=== PATIENT | male | born 1955 | race Caucasian/White ===

== ENCOUNTER 2016-11-24 13:09 | Inpatient (IN) | payer OTHER ==
[~2016-11-24] VITALS: Ht 165.1 cm; Wt 71.2 kg
[2016-11-24] MEDS: PROPRANOLOL 10 MG TAB PO SCH
[2016-11-24] MEDS: RIFAXIMIN 550 MG TAB PO SCH (00:12)
[~2016-11-24 13:09] MED LIST: DOXY-220 PO; FURO40TA4 PO; LACT20SO12 PO; LANT3I SC; LEVO500T72 PO; METF-480 PO; PANT40TA4 PO; PROP10TA6 PO; RIFA550T4 PO; SPIR50TA PO; SUCR1TAB56 PO
[2016-11-24] MEDS ORDERED: SOD CHLORIDE 0.9% 500 ML IV STA (13:48)
[2016-11-24] MEDS ORDERED: FURO40TA4 PO (14:10)
[2016-11-24] MEDS ORDERED: LANT3I SC (14:11)
[2016-11-24] MEDS ORDERED: SPIR100T PO (14:11)
[2016-11-24 14:18] LABS: ADD SCAN DIFF NO
[2016-11-24 14:21] LABS: BASOPHILS % 0.5 % (0.0-2.0); EOSINOPHILS # 0.2 10^3/ul (0.0-0.5); EOSINOPHILS % 2.1 % (0.0-7.0); HEMOGLOBIN 10.4 g/dl (14.0-18.0); LYMPHOCYTES # 1.6 10^3/ul (0.8-2.9); LYMPHOCYTES % 20.6 % (15.0-51.0); MEAN CORPUSCULAR HEMOGLOBIN 32.1 pg (29.0-33.0); MEAN CORPUSCULAR HGB CONC 34.7 g/dl (32.0-37.0); MEAN CORPUSCULAR VOLUME 92.6 fl (82.0-101.0); MONOCYTE # 0.8 10^3/ul (0.3-0.9); MONOCYTES % 9.9 % (0.0-11.0); NEUTROPHILS % 66.5 % (39.0-77.0); PLATELET COUNT 156 10^3/UL (140-415); RED BLOOD COUNT 3.24 10^6/ul (4.70-6.10); RED CELL DISTRIBUTION WIDTH 15.4 % (11.5-14.5); WHITE BLOOD COUNT 7.6 10^3/ul (4.8-10.8)
[2016-11-24 14:32] LABS: CHLORIDE 107 mmol/L (97-110); POTASSIUM 4.1 mmol/L (3.5-5.1); SODIUM 140 mmol/L (135-144)
[2016-11-24 14:33] LABS: INR 1.22; PARTIAL THROMBOPLASTIN TIME 29.6 Sec (25.0-35.0); PROTIME 15.5 Sec (12.2-14.2); PT RATIO 1.2
[2016-11-24 14:34] LABS: ALBUMIN/GLOBULIN RATIO 0.61; ALKALINE PHOSPHATASE 222 IU/L (42-121); ANION GAP 15 (8-16); ASPARTATE AMINO TRANSFERASE 37 IU/L (15-46); BILIRUBIN,INDIRECT 1.7 mg/dl (0-1.1); BILIRUBIN,TOTAL 1.7 mg/dl (0.2-1.3); CARBON DIOXIDE 22 mmol/L (21-31); CREATININE 1.06 mg/dl (0.61-1.24); TOTAL PROTEIN 7.9 g/dl (6.1-8.1)
[2016-11-24 14:35] LABS: ALANINE AMINOTRANSFERASE 19 IU/L (13-69); BLOOD UREA NITROGEN 21 mg/dl (7-20); GLUCOSE 255 mg/dl (70-220)
[2016-11-24 14:36] LABS: ETHANOL < 10.0 mg/dl
[2016-11-24 14:47] LABS: TROPONIN-I < 0.012 ng/ml (0.00-0.12)
--- NOTE | 2016-11-24 15:16 | RADRPT ---
PROCEDURE: XR Chest 1 View. CLINICAL INDICATION: Abnormal breath sounds, abdominal pain TECHNIQUE: AP view of the chest was obtained. COMPARISON: August 01, 2016 FINDINGS: The heart size is within normal limits. Calcified atherosclerosis is noted in the aorta. The lungs are hypoinflated. Elevation of the right hemidiaphragm is identified. Atelectasis is seen at the jeana ng bases. No consolidations are identified. No pneumothorax is seen. Osseous structures are intact . IMPRESSION: Calcified atherosclerosis in the aorta. Hypoinflated lungs with elevation of the right hemidiaphragm. Atelectasis at the lung bases. RPTAT: AA .Fabio Pelletier MD, Date Time Electronically viewed and signed by .Fabio Pelletier MD, MD on 11/24/2016 15:16 .P/
[2016-11-24] MEDS ORDERED: LACTULOSE 30ML CUP PO ONE (16:00)
[2016-11-24 16:05] LABS: ADD UMIC YES; URINE BILIRUBIN (Dip) NEGATIVE (NEGATIVE); URINE BLOOD (Dip) 1+ (NEGATIVE); URINE COLOR LT. YELLOW (YELLOW); URINE GLUCOSE (Dip) NEGATIVE (NEGATIVE); URINE KETONES (Dip) NEGATIVE (NEGATIVE); URINE LEUKOCYTE ESTERASE (Dip) NEGATIVE (NEGATIVE); URINE NITRITE (Dip) NEGATIVE (NEGATIVE); URINE TOTAL PROTEIN (Dip) NEGATIVE (NEGATIVE); URINE UROBILINOGEN (Dip) 0.2 E.U./dL (0.1-1.0)
--- NOTE | 2016-11-24 16:55 | ERA ---
ER Documentation Chief Complaint Date/Time DATE: 11/24/16 TIME: 16:52 Chief Complaint confusion since this morning. no trauma. no headache. transplant list HPI 61-year-old man brought in by son for recent confusion, he has a history of liver failure secondary to chronic alcoholism and his PMD suspected hepatic encephalopathy and prescribed lactulose although son states he has not yet used it. He has had no fevers or chills, no vomiting or diarrhea, no blood per rectum or melena. Patient denies chest pain or shortness of breath. ROS All systems reviewed and are negative except as per history of present illness. Medications Home Meds Active Scripts Propranolol Hcl* (Propranolol Hcl*) 10 Mg Tablet, 10 MG PO BID, #60 TAB Prov:AISHA SANDOVAL MD 08/03/16 Pantoprazole* (Pantoprazole*) 40 Mg Tablet.dr, 40 MG PO AC BREAKFAST, #30 TAB Prov:AISHA SANDOVAL MD 08/03/16 Reported Medications Insulin Glargine* (Lantus*) 100 Unit/Ml Soln, 30 UNIT SC DAILY, #1 VIAL 11/24/16 Spironolactone* (Aldactone*) 100 Mg Tablet, 100 MG PO BID, #60 TAB 11/24/16 Furosemide* (Furosemide*) 40 Mg Tablet, 40 MG PO DAILY, TAB 11/24/16 Sucralfate* (Carafate*) 1 Gm Tab, 1 GM PO Q6, TAB 07/08/16 Discontinued Scripts Doxycycline Monohydrate* (Doxycycline Monohydrate*) 100 Mg Tablet, 100 MG PO BID , #40 TAB Prov:AISHA SANDOVAL MD 08/03/16 Lactulose* (Cephulac*) 20 Gm/30 Ml Soln, 20 GM PO TID for 30 Days Prov:AISHA SANDOVAL MD 08/03/16 Spironolactone* (Aldactone*) 50 Mg Tablet, 25 MG PO BID, #60 TAB Prov:AISHA SANDOVAL MD 08/03/16 Levofloxacin* (Levaquin*) 500 Mg Tablet, 500 MG PO ONCE for prostatitis for 14 Days, #14 TAB Prov:AISHA SANDOVAL MD 08/03/16 Furosemide* (Furosemide*) 40 Mg Tablet, 20 MG PO DAILY for 30 Days, #30 TAB 1 Refill Prov:AISHA SANDOVAL MD 08/03/16 Metformin* (Glucophage*) 850 Mg Tablet, 500 MG PO WITH BREAKFAST DINNE, #60 TAB Prov:AISHA SANDOVAL MD 08/03/16 Insulin Glargine* (Lantus*) 100 Unit/Ml Soln, 25 UNIT SC QPM, #1 VIAL Prov:AISHA SANDOVAL MD 08/03/16 Rifaximin* (Xifaxan*) 550 Mg Tablet, 550 MG PO BID for 30 Days, TAB Prov:ZEHRA CANALES MD 07/11/16 Allergies Allergies: Coded Allergies: No Known Allergy (Unverified , 07/02/16) PMhx/Soc Recent septic shock, previous alcoholism, alcoholic cirrhosis, diabetes mellitus , hypertension, upper gastrointestinal varices, thrombocytopenia History of Surgery: Yes Anesthesia Reaction: No Hx Neurological Disorder: No Hx Respiratory Disorders: Yes (Pneumonia) Hx Cardiac Disorders: Yes (Pul HTN) Hx Psychiatric Problems: No Hx Miscellaneous Medical Probl: Yes (Sepsis. C.diff. UTI. PNA. cirrhosis) Hx Alcohol Use: Yes (Long time ago) Hx Substance Use: No Hx Tobacco Use: No Smoking Status: Never smoker FmHx Family History: No diabetes Physical Exam Vitals Vital Signs Date Time Temp Pulse Resp B/P Pulse Ox O2 Delivery O2 Flow Rate FiO2 11/24/16 16:42 78 20 128/76 99 Room Air 11/24/16 14:04 Nasal Cannula 2 11/24/16 13:28 98.8 97 21 116/78 99 Physical Exam GENERAL: Well-developed, dehydrated, emaciated man HEENT: Pale conjunctivae, dry mucous membranes, no cervical spine tenderness or step-off deformities, no goiter, no jaundice or icterus, extraocular movements intact without pain. No submandibular induration, and no pharyngeal erythema NEURO: Patient is alert and oriented 1, he is able to answer questions and follow simple commands, cranial nerves II through XII intact bilaterally, pupils equal round reactive to light, no focal deficits or facial asymmetry, sensation intact distally Strength 5/5 in upper and lower extremities bilaterally CARDIAC: Regular rate and rhythm, no murmurs rubs or gallops LUNGS: Clear bilaterally no wheezing crackles or stridor ABDOMEN: Soft, protuberant abdomen, no guarding, no rigidity, no rebound, no psoas sign no obturator sign. Normoactive bowel sounds SKIN: Warm and dry to touch, no abrasions, contusions, or hematomas, no lacerations, no ecchymosis, no target lesions, and without ulcers EXTREMITIES: No clubbing cyanosis or edema, calves are bilaterally symmetrical, no Homans sign, no popliteal cord sign. Distal pulses equal and bilateral PSYCH: Normal affect without agitation or irritability Result Diagram: 11/24/16 1400 11/24/16 1400 Results 24 hrs Laboratory Tests Test 11/24/16 14:00 11/24/16 15:40 White Blood Count 7.610^3/ul Red Blood Count 3.2410^6/ul Hemoglobin 10.4g/dl Hematocrit 30.0% Mean Corpuscular Volume 92.6fl Mean Corpuscular Hemoglobin 32.1pg Mean Corpuscular Hemoglobin Concent 34.7g/dl Red Cell Distribution Width 15.4% Platelet Count 83218^3/UL Mean Platelet Volume 10.0fl Neutrophils % 66.5% Lymphocytes % 20.6% Monocytes % 9.9% Eosinophils % 2.1% Basophils % 0.5% Nucleated Red Blood Cells % 0.0/100WBC Neutrophils # 5.010^3/ul Lymphocytes # 1.610^3/ul Monocytes # 0.810^3/ul Eosinophils # 0.210^3/ul Basophils # 0.010^3/ul Nucleated Red Blood Cells # 0.010^3/ul Prothrombin Time 15.5Sec Prothrombin Time Ratio 1.2 INR International Normalized Ratio 1.22 Activated Partial Thromboplast Time 29.6Sec Sodium Level 140mmol/L Potassium Level 4.1mmol/L Chloride Level 107mmol/L Carbon Dioxide Level 22mmol/L Anion Gap 15 Blood Urea Nitrogen 21mg/dl Creatinine 1.06mg/dl Glucose Level 255mg/dl Calcium Level 9.0mg/dl Total Bilirubin 1.7mg/dl Direct Bilirubin 0.00mg/dl Indirect Bilirubin 1.7mg/dl Aspartate Amino Transf (AST/SGOT) 37IU/L Alanine Aminotransferase (ALT/SGPT) 19IU/L Alkaline Phosphatase 222IU/L Ammonia 95umol/l Troponin I < 0.012ng/ml Total Protein 7.9g/dl Albumin 3.0g/dl Globulin 4.90g/dl Albumin/Globulin Ratio 0.61 Lipase 297U/L Ethyl Alcohol Level < 10.0mg/dl Urine Color LT. YELLOW Urine Clarity CLEAR Urine pH 7.0 Urine Specific [place] <=1.005 Urine Ketones NEGATIVE Urine Nitrite NEGATIVE Urine Bilirubin NEGATIVE Urine Urobilinogen 0.2 E.U./dL Urine Leukocyte Esterase NEGATIVE Urine Microscopic RBC 2-5/HPF Urine Microscopic WBC NONE SEEN/HPF Urine Hemoglobin 1+ Urine Glucose NEGATIVE% Urine Total Protein NEGATIVE Current Medications Medications (Trade) Dose Ordered Sig/José Miguel Route PRN Reason Start Time Stop Time Status Last Admin Dose Admin Sodium Chloride (NS) 500 ml @ 500 mls/hr Q1H STAT IV 11/24/16 13:48 11/24/16 14:47 DC 11/24/16 14:40 Lactulose (Enulose) 40 gm ONCE ONCE PO 11/24/16 16:00 11/24/16 16:01 DC 11/24/16 15:48 Lorazepam (Ativan) 0.5 mg ONCE ONCE IV 11/24/16 17:30 11/24/16 18:35 DC 11/24/16 17:20 Lorazepam (Ativan) 1 mg ONCE ONCE IV 11/24/16 18:00 11/24/16 18:35 DC 11/24/16 17:50 Rifaximin (Xifaxan) 550 mg BID PO 11/24/16 18:56 Pantoprazole (Protonix Tab) 40 mg AC BREAKFAST PO 11/25/16 07:00 Lactulose (Enulose) 20 gm TID PO 11/24/16 21:00 Insulin Aspart (Novolog Insulin Pen) NOVOLOG *MILD* ALGORITHM WITH MEALS BEDTIME SC 11/24/16 21:00 Insulin Glargine (Lantus) 10 unit DAILY@20 MS 11/24/16 20:00 Miscellaneous Information (* Miscellaneous Pharmacy Order) HYPOGLYCEMIA PROTOCOL w... ONCE ONCE XX 11/24/16 19:00 11/24/16 19:01 DC Miscellaneous Information (* Miscellaneous Pharmacy Order) Discontinue Glyburide, Glipizide,... ONCE ONCE XX 11/24/16 19:00 11/24/16 19:01 DC Miscellaneous Information (* Miscellaneous Pharmacy Order) Discontinue all previ... ONCE ONCE XX 11/24/16 19:00 11/24/16 19:01 DC Pantoprazole (Protonix Iv) 40 mg DAILY IV 11/25/16 09:00 UNV Propranolol HCl (Inderal) 10 mg BID PO 11/24/16 21:00 Miscellaneous Information 1 ea NOTE XX 11/24/16 19:00 Glucose (Glutose) 15 gm Q15M PRN PO DECREASED GLUCOSE 11/24/16 19:00 Glucose (Glutose) 22.5 gm Q15M PRN PO DECREASED GLUCOSE 11/24/16 19:00 Dextrose (D50w Syringe) 25 ml Q15M PRN IV DECREASED GLUCOSE 11/24/16 19:00 Dextrose (D50w Syringe) 50 ml Q15M PRN IV DECREASED GLUCOSE 11/24/16 19:00 Glucagon (Glucagen) 1 mg Q15M PRN IM DECREASED GLUCOSE 11/24/16 19:00 Glucose (Glutose) 15 gm Q15M PRN BUCCAL DECREASED GLUCOSE 11/24/16 19:00 Procedures/MDM IV line was established patient was placed on manager cardiac cath rhythm strip revealed a sinus tachycardia at 100 bpm with upright P and T waves. I administered 500 cc of normal saline intravenously. CBC was unremarkable, electrolytes revealed dehydration with a BUN/creatinine of 21/1.1, liver function tests were unremarkable, ammonia level elevated at 95. Coagulation profile revealed an INR of 1.2, urine analysis was negative for infection. Alcohol level was negative. EKG performed, read by me: 91 bpm, normal sinus rhythm, normal axis, no acute ST segment changes, narrow QRS complex, with good R-wave progression in precordial leads. For acute hyperammonemia administered lactulose 40 g p.o. which he tolerated. Unfortunately patient continually got out of bed and given his confusion was at risk for falling and sustaining either head and/or neck injury. Despite explaining to him multiple times patient obviously remains confused and would not comply with orders to lay in bed. Physical restraints were administered in the upper and lower extremities bilaterally although patient became further agitated and ultimately required lorazepam 1.5 mg IV, the risks of lorazepam therapy were weighted against the benefits carefully, and I decided to administer the lorazepam. Critical Care: Time: 35 minutes, this was time separate from other procedures. Treatments/Evaluations: Close monitoring and treatment of unstable vital signs, cardiorespiratory, and neurologic status, while maintaining tight balance of fluid, respiratory, and cardiac interventions. Patient will be admitted for continued medical management and lactulose therapy. Departure Diagnosis: Primary Impression: Altered level of consciousness Additional Impressions: Hyperammonemia Hepatic cirrhosis Qualified Code: K70.31 - Alcoholic cirrhosis of liver with ascites Dehydration Condition: DAVID Mccarthy MD Nov 24, 2016 16:55
[2016-11-24] MEDS ORDERED: LORAZEPAM 2 MG INJ IV ONE ×2 (17:30→18:00)
[2016-11-24] MEDS ORDERED: GLUCOSE GEL 15 GRAM TUBE PO PRN ×2 (19:00)
[2016-11-24] MEDS ORDERED: DEXTROSE 50% 50 ML SYRINGE IV PRN ×2 (19:00)
[2016-11-24] MEDS ORDERED: GLUCOSE GEL 15 GRAM TUBE BUCCAL PRN (19:00)
[2016-11-24] MEDS ORDERED: GLUCAGON 1 MG INJ IM PRN (19:00)
[2016-11-24] MEDS: INSULIN GLARGINE [LANtus] 3 ML PEN SC SCH (20:00)
--- NOTE | 2016-11-24 20:09 | RADRPT ---
PROCEDURE: US liver, right upper quadrant CLINICAL INDICATION: Possible ascites. Abdominal distension. Questionable hepatoma TECHNIQUE: Multiple real-time images were acquired of the patient's right upper abdomen utilizing a high resolution transducer. COMPARISON: CT abdomen and pelvis 07/09/2016. Ultrasound 07/02/2016 Technical note: The examination is suboptimal because of the patient's large body habitus. FINDINGS: Liver: Nodular in contour with heterogeneous echotexture, findings consistent with cirrhosis. Ther e is no evidence of mass or ductal dilatation. Normal directional blood flow is seen within the john nt main portal vein. The maximum dimension of the liver is estimated at 12.4 cm, decreased from 14.5 cm on the prior ultrasound of 07/02/2016. . Gallbladder: Normal. No sonographic Wall's sign is reported.Thickening of the wall (6mm) is like ly due to hepatocellular dysfunction or ascites. Common bile duct: Normal; 4.6 mm. There is no evidence for choledocholithiasis. Right Kidney: Normal; maximum length measured at approximately 8.7cm. Questionable 4 mm non obstruc ting calculus not seen previously. Pancreas: Obscured by bowel gas. Other findings: Moderate to severe ascites similar to the CT of 07/09/2016 RPTAT:HJJR IMPRESSION: 1. Limited exam due to body habitus. 2. Moderate to severe ascites similar to the CT of 07/09/2016. 3. Cirrhosis with slight interval decrease in hepatic size compared to the ultrasound of 07/02/2016. 4. Questionable 4 mm non-obstructing right renal calculus not seen previously. 5. Gallbladder wall thickening likely related to hepatocellular dysfunction or ascites. Physician Cale Date Time Electronically viewed and signed by Physician Cale on 11/24/2016 20:08 JR/
[2016-11-24] MEDS: INSULIN ASPART [NOVOLOG] 3 ML PEN SC SCH (21:00)
--- NOTE | 2016-11-24 21:36 | CONS ---
DATE OF ADMISSION: 11/24/2016 DATE OF CONSULTATION: 11/24/2016 TYPE OF CONSULTATION: Gastroenterology. Thank you for having me see this patient. HISTORY OF PRESENT ILLNESS: As you know, he is a 61-year-old gentleman with a long and complicated medical history. The history is obtained from review of the records and discussion with the patient 's niece since the patient is unable to give any coherent history. Apparently he was brought to the emergency room today because of a deterioration in mental function. The patient has a longstanding history of alcoholic cirrhosis. Nonetheless, he has not been drinking for some time. He had been treated with Xifaxan and lactulose for his encephalopathy. Apparently, recently he was given Ambien according to the niece. It is unclear as to how many of these he may have taken. Nonetheless, he is also undergoing a liver transplant evaluation at [facility]. There has been no rectal bleeding, melena , diarrhea or constipation noted by the niece. The patient has had extensive evaluation in the past including a colonoscopy by Dr. Ackerman in June which was negative. An endoscopy at that time revealed esophageal and gastric varices. PAST MEDICAL HISTORY: Significant for hospitalization related to liver problems as above. ADULT ILLNESSES: Significant for cirrhosis, hypertension, diabetes as well as pulmonary hypertensio n, ascites. CHILDHOOD: Denies rheumatic fever, scarlet fever. ALLERGIES: NONE KNOWN. INJURIES: None. MEDICATIONS: Apparently prior to admission have included: 1. Propranolol. 2. Pantoprazole. 3. Insulin. 4. Spironolactone. 5. Lasix. 6. Sucralfate. Apparently discontinued medications include: 1. Doxycycline. 2. Lactulose. 3. Spironolactone. 4. Levofloxacin. 5. Furosemide. 6. Metformin. 7. Insulin. 8. Rifaximin. SOCIAL HISTORY: The patient does not smoke or drink alcohol currently. FAMILY HISTORY: Noncontributory. REVIEW OF SYSTEMS: Negative except as noted above. PHYSICAL EXAMINATION: GENERAL: The patient is a well-developed, well-nourished male. No acute distress. VITAL SIGNS: Temperature is 98.8, pulse 78, respirations 20, blood pressure 128/76. SKIN: Clear. HEENT: Negative. LUNGS: Clear to percussion, auscultation. CARDIAC: No murmurs or gallops. ABDOMEN: Soft, nontender. Ascites noted. No rebound, rigidity. RECTAL: Brown stool. LABORATORY DATA: Remarkable for white count 7.6, hemoglobin 10, hematocrit 30, platelets 156. Prot tarik/INR 1.2, PTT 29. BUN 21, creatinine 1.06, bilirubin 1.7, AST 37, ALT 19, alkaline phosphatase 2 22, ammonia 95, albumin 3.0. IMPRESSION: The patient does carry a diagnosis of hepatic encephalopathy. According to the emergen cy room physician's note, apparently the Xifaxan and lactulose have been discontinued. In addition, the patient has received Ambien. It is likely the combination of his lack of Xifaxan and lactulose as well as his Ambien usage may have contributed to his current encephalopathic state. PLAN: 1. Discussed above with the patient's niece. 2. Begin Xifaxan and lactulose. 3. Check ultrasound. 4. Alpha-fetoprotein ordered. 5. Further recommendation to follow above and clinical course. Thank you for having me see this patient. Dictated By: HENRY LA/SRAVANI Conf#: [id number] DID#: [id number]
--- NOTE | 2016-11-24 21:41 | HP ---
DATE OF ADMISSION: 11/24/2016 ADMITTING DIAGNOSIS: Encephalopathy. HISTORY OF PRESENT ILLNESS: The patient is a 61-year-old male with alcoholic cirrhosis, esop hageal varices, type 2 diabetes, chronic anemia who presented to the emergency room with altered men nayely status and weakness since this morning. The patient's son brought the patient in this morning a fter his father was having trouble speaking, was confused, and had forgotten how to check his blood sugars. The patient was in his usual state of health up until yesterday. The patient was not havin g any problems. Earlier this week, the patient did undergo right heart catheterization at [facility] in [place] r[place] to further work him up for his transplant status. The patient denies any other complaints. Th e patient denies any abdominal pain, fever, chills, night sweats, but has been having more constipat ion, but the son does not know, as the patient cannot remember. REVIEW OF SYSTEMS: Otherwise, unremarkable. No chest pain, no shortness of breath, no palpitations , no nausea, vomiting, no diarrhea, no dysuria, no hematuria, no vomiting of blood, no headache, no dizziness. PAST MEDICAL HISTORY: Alcoholic cirrhosis with ascites, esophageal varices status post banding, typ e 2 diabetes, chronic anemia, pulmonary hypertension, coronary artery disease. PAST SURGICAL HISTORY: Status post esophageal variceal banding. FAMILY HISTORY: Noncontributory. ALLERGIES: NONE. MEDICATIONS: 1. Pantoprazole 40 mg daily. 2. Spironolactone 50 mg b.i.d. 3. Lasix 40 mg daily. 4. Sucralfate 1 gram b.i.d. 5. Propranolol 10 mg b.i.d. 6. Lantus 10 units subcutaneously daily. SOCIAL HISTORY: The patient lives with his family. No tobacco, no alcohol in over 15 years. Curre ntly on disability due to his liver disease. PHYSICAL EXAMINATION: VITAL SIGNS: Temperature 98.8, pulse 78, respirations 20, blood pressure 128/76, pulse oximetry 99% on room air. GENERAL: Well-developed, thin male in no acute distress, sleeping on the gurney. SKIN: No bruising or rashes. Slight decreased turgor. HEENT: No jaundice. Unable to test, as patient is sedated. Oropharynx with decreased mucous pooli ng. NECK: No jugular venous distention, 2+ carotid upstroke without bruits. No lymphadenopathy. CHEST: Clear to auscultation bilaterally. HEART: Regular rate and rhythm. No murmurs, gallops, or rubs noted. ABDOMEN: Mild distention with mild ascites. Nontender, normoactive bowel sounds. No rebound. GENITOURINARY: Normal male. No masses. EXTREMITIES: No cyanosis, clubbing, or edema. NEUROLOGIC: The patient is sedated, unarousable due to Ativan. No asterixis or clonus. LABORATORY EXAMINATION: White blood cell count 7.6, hemoglobin 10.4, hematocrit 30.0, platelets 156 . PT of 15.5, INR 1.22, PTT of 29.6. Sodium 140, potassium 4.1, chloride 107, bicarbonate 22, BUN 21, creatinine 1.06, blood sugar of 255. Total bilirubin 1.7, indirect bilirubin 1.7, AST 37, ALT 1 9, alkaline phosphatase 222. Ammonia level 95. Troponin less than 0.012. Albumin 3.0. Lipase 297 . Urinalysis shows 2 to 5 red blood cells, 1+ hemoglobin, negative glucose. Chest x-ray: Hypoinfl ation of the lungs with the right hemidiaphragm elevation, calcified aorta, atelectasis at the lung bases, otherwise no active cardiopulmonary disease. IMPRESSION: The patient is a 61-year-old male with known alcoholic cirrhosis with ascites, esophage al varices, type 2 diabetes, pulmonary hypertension, and coronary artery disease who presented to e emergency room with altered mental status. The patient with elevated ammonia and likely with hepa tic encephalopathy related to the above. The patient will be admitted to med/surg for further evalu ation and treatment. 1. Encephalopathy. The patient will be given Xifaxan and lactulose to assist with the encephalopat hy. Appreciate Dr. Wells's input into this case. We will continue to monitor ammonia levels as well as liver function tests. Keep the patient hydrated. Will hold diuretics for now. 2. Type 2 diabetes. Will do NovoLog insulin sliding scale with daily Lantus and continue with diet . 3. Anemia. This remains stable at this point. The patient had a history of thrombocytopenia in th e past with bleeding and need for transfusions of both platelets and blood, but none is needed at th is time and patient is not currently bleeding. We will continue to follow CBC. 4. Esophageal varices, stable without evidence of bleeding at this time. We will continue the nick ent on the propranolol as well as pantoprazole. 5. Pulmonary hypertension. This is stable, no treatment is needed at this time. The patient is un dergoing workup at [facility] for this and will follow up with them. 6. Coronary artery disease, stable without symptoms. The patient had a negative stress test done r ecently at [facility]. Dictated By: KAREN NORTON MD SR/NTS Conf#: [id number] DID#: [id number] CC: HENRY WELLS MD;*EndCC*
[2016-11-24] MEDS: LACTULOSE 30ML CUP PO SCH (22:44)
[2016-11-25 00:07] VITALS: BP 136/84; PULSE 99; RESP 20
[2016-11-25] MEDS ORDERED: **FLU VACCINE PREVIOUSLY DISPENSED XX PRN (00:30)
[2016-11-25] MEDS: RIFAXIMIN 550 MG TAB PO SCH ×3 (01:52→21:34)
[2016-11-25 06:19] LABS: ADD SCAN DIFF NO
[2016-11-25 06:48] LABS: ALBUMIN 2.6 g/dl (3.3-4.9)
[2016-11-25 06:49] LABS: POTASSIUM 3.9 mmol/L (3.5-5.1)
[2016-11-25 06:51] LABS: ALBUMIN/GLOBULIN RATIO 0.54; BILIRUBIN,INDIRECT 1.7 mg/dl (0-1.1); BILIRUBIN,TOTAL 1.7 mg/dl (0.2-1.3); CREATININE 0.85 mg/dl (0.61-1.24); TOTAL PROTEIN 7.4 g/dl (6.1-8.1)
[2016-11-25 06:52] LABS: CALCIUM 8.7 mg/dl (8.4-10.2)
[2016-11-25 07:00] LABS: BASOPHIL # 0.1 10^3/ul (0.0-0.1); BASOPHILS % 0.7 % (0.0-2.0); EOSINOPHILS # 0.3 10^3/ul (0.0-0.5); EOSINOPHILS % 4.3 % (0.0-7.0); HEMATOCRIT 30.2 % (42.0-52.0); HEMOGLOBIN 10.2 g/dl (14.0-18.0); LYMPHOCYTES # 1.6 10^3/ul (0.8-2.9); LYMPHOCYTES % 23.4 % (15.0-51.0); MEAN CORPUSCULAR HEMOGLOBIN 31.5 pg (29.0-33.0); MEAN CORPUSCULAR HGB CONC 33.8 g/dl (32.0-37.0); MEAN CORPUSCULAR VOLUME 93.2 fl (82.0-101.0); MEAN PLATELET VOLUME 10.3 fl (7.4-10.4); MONOCYTE # 0.8 10^3/ul (0.3-0.9); NEUTROPHIL # 4.2 10^3/ul (1.6-7.5); NEUTROPHILS % 60.3 % (39.0-77.0); PLATELET COUNT 123 10^3/UL (140-415); RED BLOOD COUNT 3.24 10^6/ul (4.70-6.10); RED CELL DISTRIBUTION WIDTH 15.8 % (11.5-14.5); WHITE BLOOD COUNT 6.9 10^3/ul (4.8-10.8)
[2016-11-25 07:40] VITALS: BP 115/67; RESP 18
[2016-11-25] MEDS: INSULIN ASPART [NOVOLOG] 3 ML PEN SC SCH ×4 (08:00→21:00)
[2016-11-25] MEDS: LACTULOSE 30ML CUP PO SCH ×3 (08:16→21:33)
[2016-11-25] MEDS: PANTOPRAZOLE (EC) 40 MG TAB PO SCH (08:16)
[2016-11-25] MEDS: PROPRANOLOL 10 MG TAB PO SCH ×2 (08:16→21:34)
[2016-11-25] MEDS ORDERED: PANTOPRAZOLE 40 MG INJ IV SCH (09:00)
--- NOTE | 2016-11-25 09:26 | PN ---
DATE: 11/25/2016 SUBJECTIVE: The patient is feeling better, but still feels confused OBJECTIVE: VITAL SIGNS: Temperature 98.6, blood pressure 115/67, pulse 76, respirations 18, oxygen saturation 94% on room air. GENERAL: Well-developed thin male, in no acute distress in bed. SKIN: No jaundice. CHEST: Clear to auscultation bilaterally. HEART: Regular rate and rhythm. ABDOMEN: Distended, nontender, normal active bowel sounds. No rebound. EXTREMITIES: No cyanosis, clubbing or edema. NEUROLOGIC: The patient is alert and oriented x2, situation and name, otherwise neurologic is nonfo jose. LABORATORY: Hemoglobin of 10.2, hematocrit of 30.2, platelets of 123. White blood cell count 6.9. Sodium 141, creatinine 0.85, potassium 3.9, chloride 113, bicarbonate 19, BUN 19, glucose 96, total bilirubin 1.7, alkaline phosphatase 168, alphafetoprotein 2.02, hemoglobin A1c 6.1%. Abdominal ultrasound shows cirrhosis, moderate ascites, thickened gallbladder wall, nonobstructing r enal stone. IMPRESSION: 1. Hepatic encephalopathy, altered mental status, cirrhosis. The patient has improved since yester day and his altered mental status may still be in part residual from receiving lorazepam yesterday. Will continue to hold any sedatives at this point and continue to monitor the patient's neurologic status. Continue with the current medications, but will hold his diuretics, as the patient was dehy drated when he first presented. 2. Diabetes. Stable. Will continue with diet and medications, with sliding scale. 3. Coronary artery disease. Stable. No treatment necessary. 4. Pulmonary hypertension. Stable. No treatment necessary. 5. Thrombocytopenia. Will continue to follow, as the patient has had to have a platelet transfusio n in the past, but that was in the midst of esophageal bleeding. Dictated By: KAREN NORTON MD SR/NTS Conf#: [id number] DID#: [id number]
--- NOTE | 2016-11-25 12:12 | CONS ---
Date/Time of Note Date/Time of Note DATE: 11/25/16 TIME: 12:06 Consult Date/Type/Reason Admit Date/Time Nov 24, 2016 at 16:05 Initial Consult Date Type of Consultation: GI Subjective Seen with son and brother at bedside Much clearer, but still not 100% back to normal according to son Son showed me medications he was taking at home, was not using xifaxan Objective Vital Signs Date Time Temp Pulse Resp B/P Pulse Ox O2 Delivery O2 Flow Rate FiO2 11/25/16 07:40 98.6 76 18 115/67 94 11/25/16 00:07 Room Air 11/24/16 14:04 2 Cheat: clear Cardiac: no m r, g Abdomen: soft, non tender Neuro: minimal hepatic flap Intake and Output 11/24/16 11/24/16 11/25/16 15:00 23:00 07:00 Intake Total 180 ml Balance 180 ml Results/Medications Result Diagram: 11/25/16 0430 11/25/16 0430 Results 24 hrs Laboratory Tests Test 11/24/16 14:00 11/24/16 15:40 11/24/16 23:03 11/25/16 04:30 White Blood Count 7.6 6.9 Red Blood Count 3.24 L 3.24 L Hemoglobin 10.4 L 10.2 L Hematocrit 30.0 L 30.2 L Mean Corpuscular Volume 92.6 93.2 Mean Corpuscular Hemoglobin 32.1 31.5 Mean Corpuscular Hemoglobin Concent 34.7 33.8 Red Cell Distribution Width 15.4 #H 15.8 H Platelet Count 156 123 #L Mean Platelet Volume 10.0 10.3 Neutrophils % 66.5 60.3 Lymphocytes % 20.6 23.4 Monocytes % 9.9 11.0 Eosinophils % 2.1 4.3 Basophils % 0.5 0.7 Nucleated Red Blood Cells % 0.0 0.0 Neutrophils # 5.0 4.2 Lymphocytes # 1.6 1.6 Monocytes # 0.8 0.8 Eosinophils # 0.2 0.3 Basophils # 0.0 0.1 Nucleated Red Blood Cells # 0.0 0.0 Prothrombin Time 15.5 #H Prothrombin Time Ratio 1.2 INR International Normalized Ratio 1.22 Activated Partial Thromboplast Time 29.6 Sodium Level 140 141 Potassium Level 4.1 3.9 Chloride Level 107 113 H Carbon Dioxide Level 22 19 L Anion Gap 15 13 Blood Urea Nitrogen 21 H 19 Creatinine 1.06 0.85 Glucose Level 255 H 96 # Calcium Level 9.0 8.7 Total Bilirubin 1.7 H 1.7 H Direct Bilirubin 0.00 0.00 Indirect Bilirubin 1.7 H 1.7 H Aspartate Amino Transf (AST/SGOT) 37 34 Alanine Aminotransferase (ALT/SGPT) 19 19 Alkaline Phosphatase 222 H 168 H Ammonia 95 #H Troponin I < 0.012 Total Protein 7.9 7.4 Albumin 3.0 L 2.6 L Globulin 4.90 H 4.80 H Albumin/Globulin Ratio 0.61 0.54 Lipase 297 Ethyl Alcohol Level < 10.0 Urine Color LT. YELLOW Urine Clarity CLEAR Urine pH 7.0 Urine Specific Gilbert <=1.005 L Urine Ketones NEGATIVE Urine Nitrite NEGATIVE Urine Bilirubin NEGATIVE Urine Urobilinogen 0.2 E.U./dL Urine Leukocyte Esterase NEGATIVE Urine Microscopic RBC 2-5 Urine Microscopic WBC NONE SEEN Urine Hemoglobin 1+ H Urine Glucose NEGATIVE Urine Total Protein NEGATIVE Bedside Glucose 117 Hemoglobin A1c 6.1 H Magnesium Level 1.8 Alpha Fetoprotein 2.02 Test 11/25/16 07:25 11/25/16 09:30 11/25/16 11:17 Bedside Glucose 105 156 Ammonia 20 # Medications Current Medications Rifaximin (Xifaxan) 550 mg BID PO Last administered on 11/25/16 08:16; Admin Dose 550 MG; Start 11/24/16 at 18:56 Lactulose (Enulose) 20 gm TID PO Last administered on 11/25/16 08:16; Admin Dose 20 GM; Start 11/24/16 at 21:00 Insulin Glargine (Lantus) 10 unit DAILY@20 SC ; Start 11/24/16 at 20:00 Propranolol HCl (Inderal) 10 mg BID PO Last administered on 11/25/16 08:16; Admin Dose 10 MG; Start 11/24/16 at 21:00 Miscellaneous Information 1 ea NOTE XX ; Start 11/24/16 at 19:00 Glucose (Glutose) 15 gm Q15M PRN PO DECREASED GLUCOSE; Start 11/24/16 at 19:00 Glucose (Glutose) 22.5 gm Q15M PRN PO DECREASED GLUCOSE; Start 3/29/17 at 19: 00 Dextrose (D50w Syringe) 25 ml Q15M PRN IV DECREASED GLUCOSE; Start 11/24/16 at 19:00 Dextrose (D50w Syringe) 50 ml Q15M PRN IV DECREASED GLUCOSE; Start 11/24/16 at 19:00 Glucagon (Glucagen) 1 mg Q15M PRN IM DECREASED GLUCOSE; Start 11/24/16 at 19:00 Glucose (Glutose) 15 gm Q15M PRN BUCCAL DECREASED GLUCOSE; Start 11/24/16 at 19 :00 Miscellaneous Information (Flu Vaccine Previously Dispensed) FLU VACCINE PREVIOUSLY DISPENSED ... NOTE PRN XX NOTE; Start 11/25/16 at 00:30 Assessment/Plan Chief Complaint/Hosp Course Impression: 1. Hepatic Encephalopathy - improved clinically and ammonia - likely related to not taking Xifaxan at home 2. Alcoholic Cirrhosis 3. Ascites 4. Portopulmonary Hypertension Plan: 1. Continue xifaxan and lactulose for now 2. Continue xifaxan at home 3. Requested son get [facility] hepatology/transplant records for me to review 4. Will restart antibiotics for SBP prophylaxis 5. Would consider discharge tomorrow if he continues to improve Problems: HENRY LARA MD Nov 25, 2016 12:12
[2016-11-25] MEDS: CIPROFLOXACIN 500 MG TAB NGT SCH (13:28)
[2016-11-25 21:17] VITALS: BP 108/69; RESP 19
[2016-11-25] MEDS: INSULIN GLARGINE [LANtus] 3 ML PEN SC SCH (22:30)
[2016-11-26] MEDS: CIPROFLOXACIN 500 MG TAB NGT SCH (05:10)
[2016-11-26 05:50] LABS: ADD SCAN DIFF NO
[2016-11-26 06:04] LABS: BASOPHILS % 0.6 % (0.0-2.0); EOSINOPHILS # 0.3 10^3/ul (0.0-0.5); EOSINOPHILS % 4.4 % (0.0-7.0); HEMATOCRIT 28.4 % (42.0-52.0); HEMOGLOBIN 9.5 g/dl (14.0-18.0); LYMPHOCYTES # 1.4 10^3/ul (0.8-2.9); LYMPHOCYTES % 19.7 % (15.0-51.0); MEAN CORPUSCULAR HEMOGLOBIN 31.5 pg (29.0-33.0); MEAN CORPUSCULAR HGB CONC 33.5 g/dl (32.0-37.0); MEAN PLATELET VOLUME 10.2 fl (7.4-10.4); MONOCYTE # 0.8 10^3/ul (0.3-0.9); NEUTROPHIL # 4.5 10^3/ul (1.6-7.5); NEUTROPHILS % 63.9 % (39.0-77.0); PLATELET COUNT 114 10^3/UL (140-415); RED BLOOD COUNT 3.02 10^6/ul (4.70-6.10); RED CELL DISTRIBUTION WIDTH 15.6 % (11.5-14.5); WHITE BLOOD COUNT 7.1 10^3/ul (4.8-10.8)
[2016-11-26 06:06] LABS: ALBUMIN 2.4 g/dl (3.3-4.9)
[2016-11-26 06:08] LABS: BILIRUBIN,INDIRECT 1.9 mg/dl (0-1.1); BILIRUBIN,TOTAL 1.9 mg/dl (0.2-1.3); CREATININE 1.05 mg/dl (0.61-1.24)
[2016-11-26 06:09] LABS: ALBUMIN/GLOBULIN RATIO 0.51; TOTAL PROTEIN 7.1 g/dl (6.1-8.1)
[2016-11-26 06:10] LABS: CALCIUM 8.8 mg/dl (8.4-10.2)
[2016-11-26 07:40] VITALS: BP 102/55; RESP 18
--- NOTE | 2016-11-26 08:38 | PDOCDIS ---
Discharge Instructions DIAGNOSIS Discharge Diagnosis: hepatic encephalopathy CONDITION Patient Condition: Good HOME CARE INSTRUCTIONS: Special Diet: 1800 ADA ACTIVITY: Activity Restrictions: No Restrictions FOLLOW UP/APPOINTMENTS Appointments pt to follow up as scheduled with KAREN Eddy MD- Nov 26, 2016 08:38
[2016-11-26] MEDS ORDERED: FURO40TA4 PO (08:43)
[2016-11-26] MEDS ORDERED: SUCR1TAB56 PO (08:43)
[2016-11-26] MEDS ORDERED: PANT40TA4 PO (08:43)
[2016-11-26] MEDS ORDERED: RIFA550T4 PO (08:43)
[2016-11-26] MEDS ORDERED: SPIR100T PO (08:43)
[2016-11-26] MEDS ORDERED: Lactulose PO (08:43)
[2016-11-26] MEDS: RIFAXIMIN 550 MG TAB PO SCH (09:26)
[2016-11-26] MEDS: PROPRANOLOL 10 MG TAB PO SCH (09:26)
[2016-11-26] MEDS: LACTULOSE 30ML CUP PO SCH (09:26)
[2016-11-26] MEDS: PANTOPRAZOLE (EC) 40 MG TAB PO SCH (09:26)
[2016-11-26] MEDS: INSULIN ASPART [NOVOLOG] 3 ML PEN SC SCH (09:27)
--- NOTE | 2016-11-26 09:28 | PN ---
DATE: 11/26/2016 SUBJECTIVE: The patient is feeling well without complaints. OBJECTIVE: VITAL SIGNS: Temperature 98.3, pulse 76 to 101, respirations 19, blood pressure 108/69, oxygen satu ration 96% on room air. GENERAL: Well-developed, well-nourished male in no acute distress. SKIN: Without rashes. No jaundice. LUNGS: Clear to auscultation bilaterally. HEART: Regular rate and rhythm. ABDOMEN: Soft, mild distention, but nontender. No rebound. Normoactive bowel sounds. EXTREMITIES: No cyanosis, clubbing or edema. NEUROLOGIC: The patient is alert and oriented x4, otherwise nonfocal. LABORATORY DATA: White blood cell count 7.1, hemoglobin 9.5, hematocrit 28.4, platelets of 114. So dium 142, potassium 4.0, chloride 112, bicarbonate 20, BUN 24, creatinine 1.05, blood sugar of 187, total bilirubin 1.9, ammonia level 31. Albumin 2.4. ASSESSMENT AND PLAN 1. Hepatic encephalopathy. This has cleared. The patient is stable for discharge to home. We vinnie l continue with ceftriaxone b.i.d. as an outpatient as well as lactulose. We will continue these me dications as well as diet. Patient will follow up with me after discharge. 2. Diabetes, stable. Continue the patient's diet and Lantus sliding scale. 3. Anemia. This is remaining stable and no need for transfusion or other. 4. Esophageal varices without bleeding. Patient will continue on pantoprazole as well as propranol ol. DISCHARGE PLANNING: The patient is stable for discharge to home. Patient already has a followup neftaly ointment with me scheduled and he will follow up as scheduled. Dictated By: KAREN NORTON MD SR/SRAVANI Conf#: [id number] DID#: [id number]
== END 2016-11-26 12:00 | disposition home or self-care (01) | DRG 442 ==
LOC: E/R 13:09 → PP2 16:05
PROVIDERS: ADMIT Internal Medicine; ATTEND Internal Medicine
DX: K72.90 Hepatic failure, unspecified without coma (principal); I85.10 Secondary esophageal varices without bleeding; K76.6 Portal hypertension; D69.6 Thrombocytopenia, unspecified; E11.9 Type 2 diabetes mellitus without complications; D64.9 Anemia, unspecified; K70.31 Alcoholic cirrhosis of liver with ascites; I27.2 Other secondary pulmonary hypertension; I25.10 Atherosclerotic heart disease of native coronary artery without angina pectoris; F10.20 Alcohol dependence, uncomplicated
CPT/HCPCS: 71010; 76705; 80053; 80306; 81001; 81003; 82105; 82140; 82962; 83036; 83690; 83735; 84484; 85025; 85610; 85730; 86850; 86900; 86901; 87040; 87086; 93005; 96374; J1815; J2060; J7040

== ENCOUNTER 2016-12-22 10:00 | Emergency (ER) | payer OTHER ==
[~2016-12-22] VITALS: Ht 167.6 cm; Wt 70.5 kg
[~2016-12-22 10:00] MED LIST changes: -DOXY-220 PO; -LACT20SO12 PO; -LEVO500T72 PO; +Lactulose PO; -METF-480 PO; +SPIR100T PO; -SPIR50TA PO
[2016-12-22 10:03] VITALS: Ht 167.6 cm; Wt 70.5 kg
[2016-12-22] MEDS ORDERED: SOD CHLORIDE 0.9% 1,000 ML IV STA (10:11)
[2016-12-22] MEDS ORDERED: METOCLOPRAMIDE 10 MG INJ IV STA (10:11)
[2016-12-22] MEDS ORDERED: DIPHENHYDRAMINE 50 MG INJ IV ONE (10:30)
[2016-12-22] MEDS ORDERED: SPIR50TA PO ×2 (10:50)
[2016-12-22] MEDS ORDERED: GABA100C14 PO (10:51)
[2016-12-22] MEDS ORDERED: ZOLP5TAB PO (10:51)
[2016-12-22] MEDS ORDERED: SUCR1TAB56 PO (10:54)
[2016-12-22 10:57] LABS: ADD SCAN DIFF NO
[2016-12-22 11:02] LABS: BASOPHILS % 0.6 % (0.0-2.0); EOSINOPHILS # 0.1 10^3/ul (0.0-0.5); EOSINOPHILS % 2.7 % (0.0-7.0); HEMATOCRIT 30.5 % (42.0-52.0); HEMOGLOBIN 10.9 g/dl (14.0-18.0); LYMPHOCYTES # 0.9 10^3/ul (0.8-2.9); LYMPHOCYTES % 16.7 % (15.0-51.0); MEAN CORPUSCULAR HEMOGLOBIN 32.2 pg (29.0-33.0); MEAN CORPUSCULAR HGB CONC 35.7 g/dl (32.0-37.0); MEAN CORPUSCULAR VOLUME 90.2 fl (82.0-101.0); MEAN PLATELET VOLUME 10.3 fl (7.4-10.4); MONOCYTE # 0.5 10^3/ul (0.3-0.9); MONOCYTES % 9.1 % (0.0-11.0); NEUTROPHIL # 3.7 10^3/ul (1.6-7.5); NEUTROPHILS % 70.5 % (39.0-77.0); PLATELET COUNT 133 10^3/UL (140-415); RED BLOOD COUNT 3.38 10^6/ul (4.70-6.10); WHITE BLOOD COUNT 5.3 10^3/ul (4.8-10.8)
--- NOTE | 2016-12-22 11:03 | RADRPT ---
PROCEDURE: CT brain without contrast CLINICAL INDICATION: Severe headaches with dizziness TECHNIQUE: CT of the brain without contrast performed on a multidetector CT scanner, with multiplan ar reformats. One or more of the following dose reduction techniques were used: Automated exposure control, adjustment in mA and / or kV according to patient size, use of iterative reconstructive costa hnique. CTDIvol = 45 mGy; DLP = 630 mGy-cm. COMPARISON: None available FINDINGS: No acute intracranial hemorrhage is identified. No extra-axial fluid collection is seen. There is no mass effect. No midline shift is identified. Ventricles and sulci are mildly enlarged compatible with volume loss. There are minimal areas of hypodensity in the periventricular - deep white matter which are nonspeci fic but suggestive of chronic small vessel ischemic changes. Ren-white differentiation is preserve d. Atherosclerotic calcifications are seen at the intracranial internal carotid arteries. Osseous structures are unremarkable. Mastoid air cells and imaged paranasal sinuses grossly clear. IMPRESSION: 1. No evidence of acute intracranial pathology. 2. Mild volume loss, with minimal chronic small vessel ischemic changes. RPTAT: VV .Harley Corado MD, MD Date Time Electronically viewed and signed by .Harley Corado MD, MD on 12/22/2016 11:03 .O/
[2016-12-22 11:08] LABS: ALBUMIN 2.7 g/dl (3.3-4.9); CHLORIDE 96 mmol/L (97-110); POTASSIUM 4.6 mmol/L (3.5-5.1); SODIUM 128 mmol/L (135-144)
[2016-12-22 11:10] LABS: BILIRUBIN,INDIRECT 1.4 mg/dl (0-1.1); BILIRUBIN,TOTAL 1.4 mg/dl (0.2-1.3); CREATININE 0.78 mg/dl (0.61-1.24)
[2016-12-22 11:11] LABS: ALANINE AMINOTRANSFERASE 25 IU/L (13-69); ALBUMIN/GLOBULIN RATIO 0.61; ALKALINE PHOSPHATASE 144 IU/L (42-121); ANION GAP 14 (8-16); ASPARTATE AMINO TRANSFERASE 33 IU/L (15-46); BLOOD UREA NITROGEN 16 mg/dl (7-20); CALCIUM 8.7 mg/dl (8.4-10.2); CARBON DIOXIDE 23 mmol/L (21-31); GLUCOSE 233 mg/dl (70-220); TOTAL PROTEIN 7.1 g/dl (6.1-8.1)
[2016-12-22 11:19] LABS: INR 1.17; PARTIAL THROMBOPLASTIN TIME 29.2 Sec (25.0-35.0); PT RATIO 1.2
[2016-12-22 11:29] LABS: TROPONIN-I < 0.012 ng/ml (0.00-0.12)
[2016-12-22 12:50] VITALS: BP 118/72; PULSE 76; RESP 24
[2016-12-22] MEDS ORDERED: TYL500 PO (13:04)
[2016-12-22] MEDS ORDERED: NAPR-688 PO (13:06)
[2016-12-22 13:17] LABS: ADD UMIC YES; URINE BILIRUBIN (Dip) NEGATIVE (NEGATIVE); URINE BLOOD (Dip) 3+ (NEGATIVE); URINE COLOR LT. YELLOW (YELLOW); URINE GLUCOSE (Dip) NEGATIVE (NEGATIVE); URINE KETONES (Dip) NEGATIVE (NEGATIVE); URINE LEUKOCYTE ESTERASE (Dip) NEGATIVE (NEGATIVE); URINE NITRITE (Dip) NEGATIVE (NEGATIVE); URINE TOTAL PROTEIN (Dip) TRACE (NEGATIVE); URINE UROBILINOGEN (Dip) 0.2 E.U./dL (0.1-1.0)
[2016-12-22 13:38] LABS: BACTERIA,URINE MODERATE
--- NOTE | 2016-12-24 06:26 | ERD ---
DATE OF SERVICE: 12/22/2016 HISTORY OF PRESENT ILLNESS: This 61-year-old male presented to the emergency room because of a headache that he had had for a few days now. It started gradually and got worse. He also had some dizziness while he had the headache. He had mild nausea but no vomiting. He also stated he had no specific neurological symptoms such as focal neurological weakness, numbness, or tendency to go to one side. He had not fallen. Also denied fevers and chills. This is not the worst headache of his life. REVIEW OF SYSTEMS: A 10-point review of systems is negative except as in HPI. MEDICATIONS: The patient is on medications for liver failure, insomnia, diabetes, seizures, and pain. PAST MEDICAL HISTORY: Seizures, diabetes, liver failure, chronic pain. PAST SURGICAL HISTORY: Denies. FAMILY HISTORY: Noncontributory. SOCIAL HISTORY: Denies tobacco, alcohol, and other drugs. PHYSICAL EXAMINATION VITAL SIGNS: Temperature 98, pulse 88, blood pressure 126/66, respirations 18, oxygen saturation 98% on room air. DIAGNOSTIC DATA: Significant for urinalysis that does show some, 2 to 5, white blood cells on urine microscopic as well as 10 to 25 red indicating possible urinary tract infection. Chemistry showed a low sodium of 129 and a glucose of 233 which is elevated. Lactic acid is normal at 1.3. Bilirubin is 1.4. Liver function tests were unremarkable except for low protein calorie malnutrition at 2.7. Hematology is within normal limits except for mild anemia at 10.9, normocytic. Coagulation studies are within normal limits. Brain CT was also performed which I interpreted, and I saw no acute process. I saw no hemorrhage , no mass effect, no midline shift, no acute fractures, and no skull fractures. Also obtained an EKG which I interpreted as: Normal sinus rhythm at 80, normal EKG, normal axis, no ST or T-wave changes concerning for acute ischemia. EMERGENCY DEPARTMENT COURSE AND MEDICAL DECISION MAKING: A 61-year-old male who had a bad headache that has been going on for several days. Low concern for subarachnoid hemorrhage as the mechanism came on slow and then got worse. The headache was easily resolved in the emergency room with a headache cocktail of 12.5 mg of Benadryl as well as 10 mg of IV Reglan and IV fluids. He said that his headache was gone. His dizziness had dissipated too. He was feeling much better. I did review his EMR and saw that the last time he was here he was admitted for hepatic encephalopathy and the time before that was for sepsis. I made a further search, and I ordered an ammonia level which of the patient was 0 ruling out hepatic encephalopathy. He had no vital signs for sepsis except for a ransient mildly increased respiratory rate without an increased white count and no other vitals that were septic in appearance. I did not believe that the patient had an infection. I have spoken with 2 family members that were still present upon discharge time about what they would like to do if he feels confused and he does have a slightly low sodium of 128. We could admit him for workup for the hypokalemia to see if that is the reason that he had the feelings he had earlier in the day. He says, however, he just feels completely normal and he would like to go home. The patient's son also preferred to take him home because he was better. I agreed that patient would go home with his laboratories printed and circled where it says 128 is his sodium and follow up with his doctor in the next 2 days to have it rechecked or return to the emergency room if he cannot get an appointment with his doctor. DIAGNOSES: I am going to discharge him with the diagnoses of 1. Hyponatremia 2. Headache. 3. Diabetic hyperglycemia. 4. Protein calorie malnutrition. DISPOSITION: Home in stable condition. Dictated By: ZEHRA SANZ/SRAVANI Conf#: [id number] DID#: [id number] MTDD
== END 2016-12-22 14:40 | disposition home or self-care (01) ==
LOC: E/R 10:00
DX: E87.1 Hypo-osmolality and hyponatremia (principal); E11.65 Type 2 diabetes mellitus with hyperglycemia; E46 Unspecified protein-calorie malnutrition; I10 Essential (primary) hypertension; I25.10 Atherosclerotic heart disease of native coronary artery without angina pectoris
CPT/HCPCS: 36415; 70450; 80053; 81001; 82140; 83605; 83690; 84484; 85025; 85610; 85730; 93005; 96374; 96375; 99285; J1200; J2765; J7030; 81003